=== PATIENT | male | born 1990 | race Two or more races ===

== ENCOUNTER 2018-10-20 13:11 | Outpatient (CLI) | payer OTHER ==
--- NOTE | 2018-10-21 10:31 | MRI Report ---
Reason: PAIN IN UNSPECIFIED KNEE Procedure Date: 10/20/2018 Accession Number: [id number] / [id number] Procedure: MRI - Knee LT W/O CPT Code: FULL RESULT: EXAM: LEFT KNEE MRI WITHOUT CONTRAST EXAM DATE: 10/20/2018 02:37 PM. CLINICAL HISTORY: Pain in unspecified knee. Pain after injury. COMPARISON: None. TECHNIQUE: Multiplanar, multisequence T1-weighted and fluid-sensitive sequences of the knee without contrast. Other: None. FINDINGS: Bones: No fractures or subluxations. No marrow edema. No bone lesions. Slight flattening of the lateral terminal sulcus of the lateral femoral condyle. Articular Cartilage: Some mild cartilaginous loss is seen at the lateral terminal sulcus of the lateral femoral condyle. Medial Meniscus: Peripheral vertically oriented tear of the posterior horn of the medial meniscus with a fragment displaced into the intercondylar notch. Series 701 image 16, series 601 image 19. Lateral Meniscus: There also is a vertically oriented tear of the posterior aspect of the lateral meniscus with a small parameniscal cyst. This is separate from the popliteus tendon sheath. Series 701 images 9-12, series 601 image 24. Cruciate Ligaments: Chronic ACL tear. PCL is normal. Collateral Ligaments: The medial collateral and lateral collateral ligamentous structures are intact. Tendons: The quadriceps, patellar, semimembranosus, and popliteus tendons are unremarkable. Musculature: No edema or fatty atrophy. Other: No effusion. No popliteal cyst. No loose bodies. The medial and lateral retinacula are intact. The subcutaneous tissues and fat pads are unremarkable. IMPRESSION: 1. Medial meniscus shows a peripheral vertically oriented tear of the posterior horn of the medial meniscus with a fragment displaced into the intercondylar notch. There is apparent truncation of the mid body and posterior horn. 2. Lateral meniscus shows a vertically oriented tear of the posterior aspect of the lateral meniscus, small parameniscal cyst also seen. 3. Chronic ACL tear. PCL is normal. There is an old well-healed osteochondral impaction injury at the lateral terminal sulcus of the lateral femoral condyle. 4. Bones, articular surfaces, quadriceps mechanism have a normal appearance. No loose bodies. No popliteal cyst. RADIA
== END 2018-10-20 13:12 | disposition home or self-care (01) ==
LOC: DI 13:11
PROVIDERS: ATTEND Family Medicine
DX: S83.242A Other tear of medial meniscus, current injury, left knee, initial encounter (principal); S83.282A Other tear of lateral meniscus, current injury, left knee, initial encounter; M23.8X2 Other internal derangements of left knee

== ENCOUNTER 2018-11-18 10:38 | Day surgery (SDC) | payer OTHER ==
[2018-11-18] MEDS ORDERED: CEFAZOLIN SODIUM IN 0.9 % NACL 2 GM/100 ML BAG IV ONE (10:39)
[2018-11-18] MEDS ORDERED: LACTATED RINGERS 1,000 ML IV ONE ×2 (11:27→15:45)
--- NOTE | 2018-11-18 12:57 | ANESTHESIA ---
Pre-Anesthesia VS, & Labs - Diagnosis left knee acl tear, meniscus tear - Procedure left knee Arthroscopic ACL reconstruction and meniscus repair Vital Signs: Temp Pulse Resp BP Pulse Ox 36.5 C 80 20 133/88 H 98 11/18/18 10:59 11/18/18 10:59 11/18/18 10:59 11/18/18 10:59 11/18/18 10:59 Height 5 ft 9 in Weight (kg) 115 kg - NPO >8 hours Home Medications and Allergies Home Medications: Ambulatory Orders Gabapentin [Neurontin] 300 mg PO TID 11/14/18 Levothyroxine Sodium [Synthroid] 50 mcg PO DAILY 11/14/18 Gabapentin [Neurontin] 300 mg PO TID 11/14/18 Levothyroxine Sodium [Synthroid] 50 mcg PO DAILY 11/14/18 Allergies/Adverse Reactions: Allergies Allergy/AdvReac Type Severity Reaction Status Date / Time No Known Drug Allergies Allergy Verified 11/14/18 14:43 Anes History & Medical History - Anesthetic History Anesthesia Complications: reports: No previous complications - Medical History Cardiovascular: reports: None Pulmonary: reports: None Gastrointestinal: reports: None Urinary: reports: None Musculoskeletal: reports: Other Endocrine/Autoimmune: reports: HyPOthyroidism Skin: reports: None Smoking Status: Never smoker Exam General: Alert Dental: WNL Mouth Opening: Greater than 4 Fingerbreadths Neck Mobility: Normal Mallampati classification: II Respiratory: Lungs clear Cardiovascular: Regular rate, Normal S1, Normal S2 Mental/Cognitive Status: Alert/Oriented X3 Plan Anesthesia Type: General Consent for Procedure(s) Verified and Reviewed: Yes Code Status: Attempt Resuscitation ASA classification: 1-Healthy patient Is this case an emergency?: No
[2018-11-18] MEDS ORDERED: EPINEPHrine 1 MG/ML AMP ONE (12:59)
[2018-11-18] MEDS ORDERED: BUPIVACAINE 0.25% PF 30 ML VIAL ONE (13:00)
[2018-11-18] MEDS ORDERED: KETOROLAC 30 MG/ML VIAL IVP ONE (14:15)
[2018-11-18] MEDS ORDERED: LIDOCAINE-MPF 2% 5 ML VIAL IM ONE (14:15)
[2018-11-18] MEDS ORDERED: DEXAMETHASONE 4 MG/ML VIAL IVP ONE (14:15)
[2018-11-18] MEDS ORDERED: PROPOFOL 200 MG/20 ML VIAL IVP ONE (14:15)
[2018-11-18] MEDS ORDERED: ROCURONIUM 50 MG/5 ML VIAL IVP ONE (14:15)
[2018-11-18] MEDS ORDERED: ONDANSETRON 4 MG/2 ML VIAL IVP ONE (14:15)
[2018-11-18] MEDS ORDERED: MIDAZOLAM 2 MG/2 ML VIAL IVP ONE (14:15)
[2018-11-18] MEDS ORDERED: fentaNYL 100 MCG/2 ML VIAL IVP ONE (14:15)
[2018-11-18] MEDS ORDERED: HYDROmorphone 1 MG/ML SYRINGE IVP ONE (14:15)
[2018-11-18] MEDS ORDERED: BUPIVACAINE 0.25% PF 30 ML VIAL SUBQ ONE (14:58)
[2018-11-18] MEDS ORDERED: ONDANSETRON 4 MG/2 ML VIAL IVP PRN (17:00)
[2018-11-18] MEDS ORDERED: oxyCODONE 5 MG TABLET PO PRN (17:00)
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
[2018-11-18] MEDS ORDERED: ACETAMINOPHEN 1,000 MG/100 ML 100 ML IV ONE (17:25)
[2018-11-18] MEDS: fentaNYL 100 MCG/2 ML VIAL ONE ×2 (17:31→17:39)
[2018-11-18] MEDS ORDERED: oxyCODONE 5 MG TABLET ONE (18:20)
[2018-11-18 18:29] VITALS: BP 118/73
== END 2018-11-18 10:39 | disposition home or self-care (01) ==
LOC: SDS 10:38
PROVIDERS: ATTEND Orthopaedic Surgery
PROC: 0SBD4ZZ Excision of Left Knee Joint, Percutaneous Endoscopic Approach (ICD-10-PCS; 2018-11-18)
PROC: 0SBD4ZZ Excision of Left Knee Joint, Percutaneous Endoscopic Approach (ICD-10-PCS; 2018-11-18)
PROC: 0MRP47Z Replacement of Left Knee Bursa and Ligament with Autologous Tissue Substitute, Percutaneous Endoscopic Approach (ICD-10-PCS; principal; 2018-11-18 11:45)
DX: S83.512A Sprain of anterior cruciate ligament of left knee, initial encounter (principal); S83.282A Other tear of lateral meniscus, current injury, left knee, initial encounter; S83.242A Other tear of medial meniscus, current injury, left knee, initial encounter; E03.9 Hypothyroidism, unspecified
CPT/HCPCS: 29880; 29888; A9270; C1713; J0131; J0690; J7120

== ENCOUNTER 2019-02-22 10:40 | Outpatient (CLI) | payer OTHER ==
[2019-02-22 12:10] VITALS: BP 120/80
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
== END 2019-02-22 10:41 | disposition home or self-care (01) ==
LOC: SC 10:40
PROVIDERS: ATTEND Nurse Practitioner Family
DX: R06.83 Snoring (principal); R06.81 Apnea, not elsewhere classified; R51 Headache; G47.8 Other sleep disorders; R41.89 Other symptoms and signs involving cognitive functions and awareness; G47.10 Hypersomnia, unspecified; G47.00 Insomnia, unspecified; G25.81 Restless legs syndrome
CPT/HCPCS: 99204; 99212

== ENCOUNTER 2019-03-16 19:29 | Outpatient (CLI) | payer OTHER | END 2019-03-16 19:30 | disposition home or self-care (01) | LOC: SC 19:29 | PROVIDERS: ATTEND Internal Medicine Pulmonary Disease | DX: G47.61 Periodic limb movement disorder (principal); R06.83 Snoring | CPT/HCPCS: 95810 ==

== ENCOUNTER 2019-04-06 08:17 | Outpatient (CLI) | payer OTHER ==
[2019-04-06 09:08] VITALS: BP 120/80
--- NOTE | 2019-04-06 09:08 | SLEEP CARE CONSULTATION ---
Information from patient questionnaire entered by Nina Moore. I have reviewed and concur with the information entered by Nina Moore. This document represents the service I personally performed and the decisions made by me, Michelle Escamilla RN, MSN, DIRECT[employer] OF [employer]. History of Present Illness Initial Jarreau Sleepiness Scale score: 21 Current Jarreau Sleepiness Scale score: 20 Additional HPI information: LIANA MCCLAIN returns for follow up of the recently performed polysomnography and was informed of the findings. I explained the pathophysiology behind obstructive sleep apnea. Patient does not have significant sleep disordered breathing but has elevated AHI in supine position so advised positional therapy. Methods to achieve positional management therapy were discussed; such as, positioning with pillows, wearing a T-shirt with tennis balls sewn into the back, Rematee shirt, Zzomba belt and Slumberbump belt. Pamphlets provided on how to obtain the commercially available products. Patient also has mild to light snoring. Snoring and apnea risk can be reduced by weight loss. Weight loss is best achieved with diet consult. Patient instructed to contact PCP for referral if having difficulty losing weight. Snoring can also be treated with an oral appliance from a dentist. Advised to check insurance coverage. In addition, an ENT evaluation can be do to see if other treatment is indicated. Patient counseled not drink alcohol less than 4 hours before bedtime as it can increase snoring and apnea. Patient was cautioned about risks of drowsy driving until sleepiness symptoms resolve. Patient denies drowsy driving except on long distances. Thus he was advised to avoid long distance driving unless accompanied by a additional who stays awake and keeps him engaged. He is also advised to stop frequently and at first sign of drowsiness. Sleep Study - Polysomnography Polysomnography findings: The quality of the study is good. The patient had reduced sleep efficiency due to several prolonged awakenings after the sleep onset. The sleep architecture was relatively normal considering the first-night effect. Respiratory monitoring showed no significant sleep disordered breathing (AHI = 1.8) or hypoxia (judith oxygen saturation of 91%). The few respiratory events occurred almost exclusively during supine sleep (supine AHI = 14.1; non-supine = 0.45). Snore was rare and light in intensity. There was mild periodic leg movement of sleep not associated with sleep fragmentation. Cardiac rhythm was normal sinus rhythm without significant arrhythmia. No abnormal behavior (parasomnia) observed during the night. Allergies and Home Medications Home medication list reviewed: Yes (xeralto discontinued) Allergy and home medication list: synthroid 50mcg daily gabapentin 300mg tid daily Review of Systems Review of systems same as previous: Yes Physical Exam Blood Pressure: 120/80 Cuff size: long Heart Rate: 83 O2 Saturation: 98 Height: 5 ft 8.25 in Weight: 264 lb 9.6 oz Weight change since last visit: lost 3 pounds Body Mass Index: 39.9 BMI Classification: Obesity Class 2 Impression and Plan 1. Snoring but no significant sleep disordered breathing except in supine position. Thus patient advised to avoid supine sleep as instructed. He will try the Tshirt method and follow up in about 2 months to check efficacy. This will assist rule out if his sleepiness symptoms are from his apnea or other medical condition. His gabapentin can also contribute to fatigue. At follow up it will be determined if treatment effective or further evaluation is indicated. For snoring, patient is advised to continue with weight loss. He can consider a diet consult if unable to reach his weight loss goals. An oral appliance can also be used for snoring. This would require a dental consultation. Patient cautioned not to use other online appliances as can cause bite issues. Patient is advised to check if insurance will cover. An ENT consult can also be helpful to determine if any other treatment is an option. 2. Periodic limb movement, mild, that did not fragment patients sleep. Periodic limb movement of sleep (PLMS) is characterized by episodes of repetitive limb movements that occur during sleep and usually involve the lower limbs. The etiology is unknown but can be associated with restless leg syndrome (RLS), neuropathy, spinal cord diseases, kidney disease, rheumatological disorders, narcolepsy, obstructive sleep apnea, and REM sleep behavior disorder. Other factors that can increase PLMS and/or RLS are heredity and iron deficiency as reflected by a low serum ferritin level below 50 to 75mcg / L. Several medications can precipitate or aggravate PLMS such as selective serotonin re- uptake inhibitor antidepressants, tricyclic antidepressants, lithium, and dopamine receptor antagonists with the exception of bupropion. Caffeine can also aggravate PLMS and should be avoided. Sleep hygiene methods can also impro ve sleep as well as lifestyle changes such as regular exercise. Patient was advised that no treatment is needed at this time. If symptoms increase, then further evaluation is indicated such as pain management and evaluation of his herniated disc. . * Positional therapy * Attempt to lose weight * Avoid alcohol consumption near bedtime * The patient is cautioned about driving until sleepiness is completely resolved. * Return in 2 months for follow up to check effectiveness of therapy. I spent 100% of this 33 minute visit face to face with the patient with greater than 50% of this was spent time counseling the patient and coordination of care.
== END 2019-04-06 08:18 | disposition home or self-care (01) ==
LOC: SC 08:17
PROVIDERS: ATTEND Nurse Practitioner Family
DX: R06.83 Snoring (principal); G47.61 Periodic limb movement disorder
CPT/HCPCS: 99212; 99214

== ENCOUNTER 2021-07-03 13:24 | Outpatient (CLI) | payer OTHER ==
--- NOTE | 2021-07-03 14:33 | MRI Report ---
PROCEDURE: Lumbar Spine W/O INDICATIONS: LOW BACK PAIN TECHNIQUE: Noncontrast sagittal T1 spin echo and T2 fast echo, sagittal STIR, axial T1 and T2 fast spin echo thr ough the lumbar spine. In cases with scoliosis, additional coronal T2 fast spin echo may be performe d. COMPARISON: None. FINDINGS: Image quality: Motion artifact is noted. Alignment and Curvature: There is normal bony alignment. Bone Marrow: Marrow is of normal overall signal. No acute vertebral body compression fractures. Spinal Cord: Conus medullaris terminates at the L1 level. Visualized cord demonstrates normal signa l and size. Paraspinous Soft Tissues: No paravertebral masses. Incidental note is made of a retroaortic left r enal vein. T12-L1: Normal in appearance. L1-L2: Normal in appearance. L2-L3: Normal in appearance. L3-L4: No significant abnormality is seen. L4-L5: The disc height and disc signal are well preserved. Mild disc bulge is seen at this level. T here is moderate right-sided and [id number] left-sided neuroforaminal narrowing. Minimal centra l canal narrowing is seen. L5-S1: Level within normal limits. IMPRESSION: Focal L4-L5 degenerative change. Reviewed by: Juan Diego Luevano MD on 07/03/2021 1:31 PM [place] Approved by: Juan Diego Luevano MD on 07/03/2021 1:31 PM [facility] Station ID: [id number]
== END 2021-07-03 13:25 | disposition home or self-care (01) ==
LOC: DI 13:24
PROVIDERS: ATTEND Family Medicine
DX: M48.061 Spinal stenosis, lumbar region without neurogenic claudication (principal)

== ENCOUNTER 2022-03-05 13:33 | Outpatient (CLI) | payer OTHER ==
--- NOTE | 2022-03-05 16:17 | MRI Report ---
PROCEDURE: Knee LT W/O INDICATIONS: LEFT KNEE INSTABILITY TECHNIQUE: Noncontrast sagittal PD fast spin echo and T2 fast spin echo with fat saturation, sagittal 3-D spoile d GE with fat saturation; coronal T1 spin echo and PD fast spin echo with fat saturation, and axial P D fast spin echo with fat saturation through the knee. COMPARISON: Left MRI 10/20/2018. FINDINGS: Image quality: Excellent. Anterior cruciate ligament: Postsurgical changes are seen from prior anterior cruciate ligament marques nstruction. The femoral tunnel is located at the 2 o'clock position in the intercondylar notch with t he orifice approximately 9 mm from the intersection of the posterior femoral cortex with Blumensaat's line. The tibial tunnel is located in the middle third of the central tibial plateau. The anterior c ruciate ligament graft is intact. There is no significant arthrofibrosis. Posterior cruciate ligament: Intact. Medial collateral ligament: Intact. Lateral collateral ligament: Intact. Medial meniscus: Diminutive appearance of the medial meniscus is suspicious for a prior partial meni scectomy. A vertical longitudinal tear is seen within the outer third of the residual meniscus at the posterior horn with uptake of knee joint fluid. Lateral meniscus: Vertically oriented intermediate signal intensity at the posterior horn without si gnificant uptake of jamul joint fluid may represent fibrovascular granulation tissue versus residual or recurrent meniscal tearing. Medial and lateral tendons: The semimembranosus tendon insertions appear intact. Visualized portion s of the pes anserinus tendons appear normal. The popliteus tendon appears intact. Iliotibial band appears normal. Anterior structures: Postsurgical changes are seen from prior patellar tendon harvest. The distal qu adriceps tendon is intact. No patellar subluxation. No femoral trochlear dysplasia or ventral trochle ar prominence. Mild scarring is seen in the infrapatellar fat pad. Bones: No acute trabecular bone injury or fracture. Medial femorotibial cartilage: Mild cartilage thinning and articular surface irregularity is seen at the weightbearing portion of the medial femorotibial compartment with small marginal osteophytes. Lateral femorotibial cartilage: Full-thickness cartilage defect is seen at the posterior weightbeari ng portion of the lateral femoral condyle measuring approximately 20 x 5 mm. Small marginal osteophyt es are present. Patellofemoral cartilage: Full-thickness cartilage loss is seen at the medial femoral trochlea exten ding to the trochlear groove with probable adjacent cartilage delamination, measuring approximately 1 0 x 4 mm. Soft tissues: There is a small joint effusion. An intermediate intensity filling defect is seen ante rior to the intercondylar notch measuring approximately 16 x 10 mm, suspicious for a cartilaginous lo ose body. There is no medial popliteal cyst. The musculature surrounding the knee is normal in bulk. Small varicose veins are noted in the lateral subcutaneous tissues. IMPRESSION: 1.Postsurgical changes from anterior cruciate ligament reconstruction with tunnel positioning as desc ribed in the body report. The anterior cruciate ligament graft is intact. 2.Postsurgical changes from partial medial meniscectomy. Suspected recurrent vertical longitudinal te aring at the posterior horn involving the outer third of meniscal tissue with uptake of jamul joint fluid. 3.Linear vertical signal intensity of the posterior horn of the lateral meniscus may represent fibrov ascular granulation tissue versus residual or recurrent meniscal tearing. 4.Large full-thickness cartilage defect at the posterior weightbearing portion of the lateral femoral condyle measuring 20 x 5 mm. Full-thickness cartilage defect is also seen within the anterior compar tment at the medial femoral trochlea/trochlear groove measuring 10 x 4 mm. There is mild grade 2 jeet dral malacia in the medial compartment. 5.Small joint effusion. Probable cartilaginous loose body anterior to the intercondylar notch measuri ng up to 16 mm. Reviewed by: Matthew Simpson MD on 03/05/2022 4:16 PM PDT Approved by: Matthew Simpson MD on 03/05/2022 4:16 PM PDT Station ID: [id number]
== END 2022-03-05 13:34 | disposition home or self-care (01) ==
LOC: DI 13:33
PROVIDERS: ATTEND Student in an Organized Health Care Education/Training Program
DX: M23.92 Unspecified internal derangement of left knee (principal); M94.262 Chondromalacia, left knee; M25.462 Effusion, left knee